=== PATIENT | female | born 1960 ===

== ENCOUNTER 2025-04-07 11:00 | Day surgery (SDC) | payer OTHER ==
[2025-03-31 13:28] VITALS: BP 144/78
[2025-03-31 14:43] LABS: INR 0.99
[~2025-04-07] VITALS: Ht 157.5 cm; Wt 73.5 kg
[2025-04-07] MEDS ORDERED: CEFTRIAXONE SODIUM 2,000 MG VIAL ONE ×2 (12:08→12:31)
[2025-04-07] MEDS ORDERED: METRONIDAZOLE/SODIUM CHLORIDE 500 MG/100 ML PIGGYBACK IV ONE (12:09)
[2025-04-07] MEDS ORDERED: POVIDONE-IODINE 118 ML BOTT TOP ONE (13:21)
[2025-04-07] MEDS ORDERED: HEMOSTATIC MATRIX 1 KIT KIT TOP ONE (13:21)
[2025-04-07] MEDS ORDERED: DIBUCAINE 30 GM TUBE ONE (13:21)
[2025-04-07] MEDS ORDERED: CELECOXIB200 MG PO (16:39)
[2025-04-07] MEDS ORDERED: INTESTINEX680 M1 PO (16:40)
[2025-04-07] MEDS ORDERED: NEURONTIN300 MG PO (16:40)
[2025-04-07] MEDS ORDERED: PERCOCET 5-3251 EACH PO (16:40)
== END 2025-04-07 21:40 | disposition home or self-care (01) ==
LOC: CIR.AMB 11:00
PROVIDERS: ATTEND Surgery
DX: C21.1 Malignant neoplasm of anal canal (principal); C21.0 Malignant neoplasm of anus, unspecified